=== PATIENT | female | born 1980 | race Caucasian/White ===

== ENCOUNTER 2017-03-31 20:37 | Emergency (ER) | payer OTHER ==
--- NOTE | 2017-03-31 21:20 | ED ORDER SUMMARY ---
..... Patient: KT HARPER I OrderSheet [facility] VisitID: [id number] [address] [place] [address] 37y, F Registration Date/Time: 03/31/2017 ORDER SHEET Weight: 113.3 kg (stated) Allergies: No Known Drug Allergy GENERAL ORDERS: Dress Wounds (Bandaid without bacitracin) (21:20 03/31/2017 Amber VEGA) (21:34 DDavis R.N.) MEDICATION ORDERS: Tdap IM 0.5 mL (NOW, per protocol) (21:20 03/31/2017 Amber VEGA) (21:33 DDeavero R.N.) IV FLUIDS: ORDER SHEET NOTES: [Electronically signed by Jann Jansen R.N. (21:45 03/31/2017)] [Electronically signed by Ray Neely DO (02:45 04/01/2017)] [Electronically locked/signed by Jann Jansen R.N. (21:45 03/31/2017)]
--- NOTE | 2017-03-31 21:20 | ED CLINICAL REPORT ---
Clinical Report - Physicians/Mid Levels [facility] [address] [place] [address] 03/31/2017 20:48 Patient: KT HARPER I Time Seen: 20:55. Arrived- By private vehicle. Historian- patient. HISTORY OF PRESENT ILLNESS Chief Complaint: Injury to the left index finger. The injury happened just prior to arrival. Occurred at work. The patient sustained a laceration. Patient is experiencing moderate pain. Patient denies injury to the head or neck. No other injury. REVIEW OF SYSTEMS The patient sustained a laceration. No swelling, tingling, numbness, weakness or foreign body. All systems otherwise negative, except as recorded above. PAST HISTORY See nurses notes. The patient's dominant hand is the right. Hypothyroidism. Tetanus immunization status is unknown. Surgeries: Cholecystectomy. SOCIAL HISTORY Never smoker. No alcohol use or drug use. ADDITIONAL NOTES The nursing notes have been reviewed. PHYSICAL EXAM Vital Signs: 03/31/2017 20:59 BP: 135/87. HR: 86. RR: 18. O2 saturation: 98%. Temp: 98.2 F. Pain level now: 3/10. Appearance: Alert. Oriented X3. Anxious. Patient in mild distress. Head: Head atraumatic. Eyes: No scleral icterus or pale conjunctivae. ENT: Pharynx normal. No pharyngeal erythema or tonsillar exudate. The mucous membranes are not dry. Neck: Normal inspection. Neck supple. C-spine non-tender. CVS: Normal heart rate and rhythm. Heart sounds normal. Pulses normal. Respiratory: No respiratory distress. Breath sounds normal. Abdomen: No visible injury. Soft. Skin: No cyanosis. Skin warm and dry. (left index finger laceration). Extremities: Tip of left index finger: mild tenderness and 1.0 cm laceration. No erythema, swelling, puncture wound or foreign body. No laceration involving the nail bed, subungual hematoma, nail avulsion, exposed bone or loss of the nail bed on the left index finger. No tip amputation of the left index finger. No wrist injury. Hand and wrist exam otherwise negative. Extremities otherwise negative. Neuro, Vascular and Tendons: Vascular status intact. Sensation intact. Motor intact. Tendon function intact. Neuro: Oriented X 3. PROGRESS AND PROCEDURES Laceration Repair: Location: left index finger. Length: 1.0cm. Complexity: simple (closed with tissue adhesive). Wound depth/shape- subcutaneous. Distal neuro/vascular/tendon status normal. No sensory deficit, motor deficit or vascular deficit distally. Tendon not examined. No tendon deficit. Prepped with Betadine. Wound explored and cleansed with normal saline. Closure of skin. Skin adhesive used. Post-procedure: she is stable and there are no complications. Bleeding is controlled and neuro-vascular status is intact distal to the wound. Dressing applied. Tetanus immunization given. Course of Care: Discussed closure options with pt and she would prefer wound adhesive. I feel this is appropriate as wound is somewhat superficial and not under tension. Patient/family counseled. Disposition: Discharged. Condition: stable and improved. CLINICAL IMPRESSION Single superficial laceration to the left index finger.No foreign body present or left fingernail injury. INSTRUCTIONS Elevate affected areas above chest level. Limit use of your left hand until better. Warnings: INFECTION: Watch for signs of infection (increasing heat and redness, pus-like drainage, swelling, or increased pain). Return or see your doctor if these signs occur. TETANUS: You were given a tetanus shot during your visit. Make a note for future reference. GENERAL WARNINGS: Return or contact your physician immediately if your condition worsens or changes unexpectedly, if not improving as expected, or if other problems arise. Your Current Medications: CONTINUE TAKING THE FOLLOWING MEDICATIONS: Levothyroxine Sodium Oral. OTC Medications: Acetaminophen (available over the counter): take according to label instructions. Motrin (available over the counter): take according to label instructions. Follow-up: Follow up with your doctor in about five days as needed. (Electronically signed by Ray Neely DO 04/01/2017 2:45)
--- NOTE | 2017-03-31 21:20 | ED NURSING NOTES ---
Clinical Report - Nurses [facility] [address] [place] [address] 03/31/2017 20:48 [id number] Triage time 21:00. Acuity: LEVEL 4. Chief Complaint: INJURY TO THE LEFT INDEX FINGER (laceration). Alert. No acute distress. MEDARDO COMA SCORE: Medardo Coma Scale: 15- eyes open spontaneously (4); best verbal response- oriented x 4 (5); best motor response- obeys commands (6). --21:03 Jann Jansen R.N. 20:59 03/31/17. BP: 135/87. HR: 86. RR: 18 (regular and unlabored). O2 saturation: 98% on room air. Temp: 98.2 F (oral). Pain level now: 02/05. --21:03 Jann Jansen R.N. Weight: 113.3 kg stated. Height/Length: 69 inches Per Patient. BMI: 36.9. --21:00 Jann Jansen R.N. Medications Levothyroxine Sodium Oral. --21:00 Jann Jansen R.N. Allergies No Known Drug Allergy. --21:00 Jann Jansen R.N. History Arrived by private vehicle. Historian: patient. Unaccompanied. This occurred just prior to arrival. She sustained a laceration. PAST MEDICAL HX: ( pt denies ). SOCIAL HX: Never smoker. No alcohol use or drug use. ( denies hi/si/abuse at home). ABUSE ASSESSMENT: No report of abuse. SELF HARM ASSESSMENT: A self harm assessment was performed. The patient answered "no" to the question "Do you have thoughts of harming or killing yourself?" and "Are you here because you tried to hurt yourself?". FALL RISK ASSESSMENT: Fall risk assessment completed. No fall risk identified. NUTRITIONAL RISK ASSESSMENT: The nutritional risk assessment revealed no deficiencies. FUNCTIONAL ASSESSMENT: Functional assessment: no impairments noted. LEARNING NEEDS ASSESSMENT: The learning needs assessment revealed no barriers. SKIN INTEGRITY ASSESSMENT: Skin integrity risk assessment completed. No skin integrity risk identified. --21:03 Jann Jnasen R.N. PROBLEMS: Hypothyroidism. --21: Jann Jansen R.N. ADDITIONAL SURGERIES: Cholecystectomy. --21: Jann Jansen R.N. Interventions ID band on patient. To treatment room. --21:03 Jann Jansen R.N. PHYSICAL ASSESSMENT GENERAL / NEURO / PSYCH: Oriented X 4. Alert. Does not appear in pain or distress or anxious. EXTREMITIES: Capillary refill is less than 2 seconds in the extremities. Neuro-vascular status intact to the extremity. SKIN: Skin is warm and dry. Skin not intact. ( left index finger tip, laceration present approx 1 inch in length). --21: Jann Jansen R.N. SKIN: ( bleeding currently controlled). --21: Jann Jansen R.N. NURSING PROGRESS NOTES Reassurance given. Two patient identifiers checked. Call light placed in reach. Side rails up x 1. Bed placed in lowest position. Brakes of bed on. Patient ready for evaluation- chart flagged. Patient waiting for evaluation. --21:03 Jann Jansen R.N. 21:30 03/31/2017 TDAP IM 0.5 mL given. (Lot#: [id number], expiration date: 09/05/2018, Speedboat Driver: Kid Bunch). Given in the left deltoid. Allergies verified and confirmed 5 rights. Vaccine information statement provided to the patient. --21:33 Marco AAmalia pham R.N. DISPOSITION / DISCHARGE Departure time: 21:45. Condition at departure: stable. No learning barriers present. Discharge instructions provided and reviewed with the patient. Treatments reviewed. Reviewed referrals. Patient verbalized understanding. Written instructions provided in Polish. The patient was discharged home, accompanied by spouse and unaccompanied at time of discharge. She left the Emergency Department ambulatory and via private vehicle. Patient driving. --:45 Jann Jansen R.N. 20:59 03/31/17. BP: 135/87. HR: 86. RR: 18 (regular and unlabored). O2 saturation: 98% on room air. Temp: 98.2 F (oral). Pain level now: 02/05. --21:45 Jann Jansen R.N. Locked/Released at 03/31/2017 21:45 by Jann Jansen R.N.
--- NOTE | 2017-03-31 21:20 | ED NURSING NOTES ---
Clinical Report - Nurses [facility] [address] [place] [address] 03/31/2017 20:48 Patient: KT HARPER I [facility]#: [id number] TRIAGE Triage time 21:00. Acuity: LEVEL 4. Chief Complaint: INJURY TO THE LEFT INDEX FINGER (laceration). Alert. No acute distress. MEDARDO COMA SCORE: Medardo Coma Scale: 15- eyes open spontaneously (4); best verbal response- oriented x 4 (5); best motor response- obeys commands (6). --21:03 Jann Jansen R.N. 20:59 03/31/17. BP: 135/87. HR: 86. RR: 18 (regular and unlabored). O2 saturation: 98% on room air. Temp: 98.2 F (oral). Pain level now: 02/05. --21:03 Jann Jansen R.N. Weight: 113.3 kg stated. Height/Length: 69 inches Per Patient. BMI: 36.9. --21:00 Jann Jansen R.N. Medications Levothyroxine Sodium Oral. --21:00 Jann Jansen R.N. Allergies No Known Drug Allergy. --21:00 Jann Jansen R.N. History Arrived by private vehicle. Historian: patient. Unaccompanied. This occurred just prior to arrival. She sustained a laceration. PAST MEDICAL HX: ( pt denies ). SOCIAL HX: Never smoker. No alcohol use or drug use. ( denies hi/si/abuse at home). ABUSE ASSESSMENT: No report of abuse. SELF HARM ASSESSMENT: A self harm assessment was performed. The patient answered "no" to the question "Do you have thoughts of harming or killing yourself?" and "Are you here because you tried to hurt yourself?". FALL RISK ASSESSMENT: Fall risk assessment completed. No fall risk identified. NUTRITIONAL RISK ASSESSMENT: The nutritional risk assessment revealed no deficiencies. FUNCTIONAL ASSESSMENT: Functional assessment: no impairments noted. LEARNING NEEDS ASSESSMENT: The learning needs assessment revealed no barriers. SKIN INTEGRITY ASSESSMENT: Skin integrity risk assessment completed. No skin integrity risk identified. --21:03 Jann Jansen R.N. PROBLEMS: Hypothyroidism. --21: Jann Jansen R.N. ADDITIONAL SURGERIES: Cholecystectomy. --21: Jann Jansen R.N. Interventions ID band on patient. To treatment room. --21:03 Jann Jansen R.N. PHYSICAL ASSESSMENT GENERAL / NEURO / PSYCH: Oriented X 4. Alert. Does not appear in pain or distress or anxious. EXTREMITIES: Capillary refill is less than 2 seconds in the extremities. Neuro-vascular status intact to the extremity. SKIN: Skin is warm and dry. Skin not intact. ( left index finger tip, laceration present approx 1 inch in length). --21: Jann Jansen R.N. SKIN: ( bleeding currently controlled). --21: Jann Jansen R.N. NURSING PROGRESS NOTES Reassurance given. Two patient identifiers checked. Call light placed in reach. Side rails up x 1. Bed placed in lowest position. Brakes of bed on. Patient ready for evaluation- chart flagged. Patient waiting for evaluation. --21:03 Jann Jansen R.N. 21:30 03/31/2017 TDAP IM 0.5 mL given. (Lot#: [id number], expiration date: 09/05/2018, Relief Pharmacist: Effektif). Given in the left deltoid. Allergies verified and confirmed 5 rights. Vaccine information statement provided to the patient. --21:33 Marco AAmalia pham R.N. DISPOSITION / DISCHARGE Departure time: 21:45. Condition at departure: stable. No learning barriers present. Discharge instructions provided and reviewed with the patient. Treatments reviewed. Reviewed referrals. Patient verbalized understanding. Written instructions provided in Chinese. The patient was discharged home, accompanied by spouse and unaccompanied at time of discharge. She left the Emergency Department ambulatory and via private vehicle. Patient driving. --:45 Jann Jansen R.N. 20:59 03/31/17. BP: 135/87. HR: 86. RR: 18 (regular and unlabored). O2 saturation: 98% on room air. Temp: 98.2 F (oral). Pain level now: 02/05. --21:45 Jann Jansen R.N. Locked/Released at 03/31/2017 21:45 by Jann Jansen R.N.
--- NOTE | 2017-03-31 21:20 | ED ORDER SUMMARY ---
..... Patient: KT HARPER I OrderSheet [facility] VisitID: [id number] [address] [place] [address] 37y, F Registration Date/Time: 03/31/2017 ORDER SHEET Weight: 113.3 kg (stated) Allergies: No Known Drug Allergy GENERAL ORDERS: Dress Wounds (Bandaid without bacitracin) (21:20 03/31/2017 Amber VEGA) (21:34 DDavis R.N.) MEDICATION ORDERS: Tdap IM 0.5 mL (NOW, per protocol) (21:20 03/31/2017 Amber VEGA) (21:33 DDeavero R.N.) IV FLUIDS: ORDER SHEET NOTES: [Electronically signed by Jann Jansen R.N. (21:45 03/31/2017)] [Electronically signed by Ray Neely DO (02:45 04/01/2017)] [Electronically locked/signed by Jann Jansen R.N. (21:45 03/31/2017)]
--- NOTE | 2017-04-01 02:46 | ED MED RECONCILIATION SUMMARY ---
Patient: KT HARPER I Medication Reconciliation Report [facility] VisitID: [id number] [address] [place] [address] 37y, F Registration Date/Time: 03/31/2017 Weight: 113.3 kg Height/Length: 69 in. BMI: 36.9 ALLERGIES: No Known Drug Allergy The patient's Home Medications are listed below: CONTINUE TAKING THE FOLLOWING MEDICATIONS: Levothyroxine Sodium Oral The source(s) of the original Home Medication information: Not obtained. The following Medications were given to the patient in the Emergency Department: TDAP [IM] IM 0.5 mL, administered: 03/31/2017 9:30:00 PM The following Medications were prescribed to the patient: Acetaminophen (available over the counter): take according to label instructions. -- Ray Neely DO Motrin (available over the counter): take according to label instructions. -- Ray Neely DO
--- NOTE | 2017-04-01 02:46 | ED MED RECONCILIATION SUMMARY ---
Patient: KT HARPER I Medication Reconciliation Report [facility] VisitID: [id number] [address] [place] [address] 37y, F Registration Date/Time: 03/31/2017 Weight: 113.3 kg Height/Length: 69 in. BMI: 36.9 ALLERGIES: No Known Drug Allergy The patient's Home Medications are listed below: CONTINUE TAKING THE FOLLOWING MEDICATIONS: Levothyroxine Sodium Oral The source(s) of the original Home Medication information: Not obtained. The following Medications were given to the patient in the Emergency Department: TDAP [IM] IM 0.5 mL, administered: 03/31/2017 9:30:00 PM The following Medications were prescribed to the patient: Acetaminophen (available over the counter): take according to label instructions. -- Ray Neely DO Motrin (available over the counter): take according to label instructions. -- Ray Neely DO
--- NOTE | 2017-04-01 02:46 | ED MAR SUMMARY ---
..... Medication Administration Record [facility] [address] [place] [address] Patient: KT HARPER I Visit ID: [id number] 37y, F Weight: 113.3 kg Height/Length: 69 in BMI: 36.9 ALLERGIES: No Known Drug Allergy Given 21:30 03/31/2017 Amalia Strickland RHoney Medication Administered: TDAP [IM], Dose: 0.5 mL IM. Medication Ordered: Tdap IM 0.5 mL (NOW, per protocol).
--- NOTE | 2017-04-01 02:46 | ED DISCHARGE INSTRUCTIONS ---
Patient: KT HARPER I General Instructions [facility] VisitID: [id number] [place] [address] 37y, F Registration Date/Time: 03/31/2017 Single superficial laceration to the left index finger.No foreign body present or left fingernail injury. INSTRUCTIONS Elevate affected areas above chest level. Limit use of your left hand until better. Warnings: INFECTION: Watch for signs of infection (increasing heat and redness, pus-like drainage, swelling, or increased pain). Return or see your doctor if these signs occur. TETANUS: You were given a tetanus shot during your visit. Make a note for future reference. GENERAL WARNINGS: Return or contact your physician immediately if your condition worsens or changes unexpectedly, if not improving as expected, or if other problems arise. Your Current Medications: CONTINUE TAKING THE FOLLOWING MEDICATIONS: Levothyroxine Sodium Oral. OTC Medications: Acetaminophen (available over the counter): take according to label instructions. Motrin (available over the counter): take according to label instructions. Follow-up: Follow up with your doctor in about five days as needed. ADDITIONAL INFORMATION Laceration(Skin Glue) A laceration is a cut through the skin. You have a laceration that has been closed with a type of skin glue. Home Care Medications: Acetaminophen (Tylenol) or ibuprofen (Motrin, Advil) may be taken for pain, unless another pain medicine was prescribed. NOTE: If you have chronic liver or kidney disease or ever had a stomach ulcer or GI bleeding, talk with your doctor before using these medications. General Care: Keep the wound clean and dry. You may shower or bathe as usual, but do not use soaps, lotions, or ointments on the wound area. Do not scrub the wound. After bathing, pat the wound dry with a soft towel. If a bandage was applied and it becomes wet or dirty, replace it. Otherwise, change the bandage every 24 hours. Do not scratch, rub, or pick at the film. Do not place tape directly over the film. Do not apply liquids (such as peroxide), ointments, or creams to the wound while the film is in place. Most skin wounds heal without problems. However, an infection sometimes occurs despite proper treatment. Therefore, watch for the signs of infection listed below. Follow Up as directed by the doctor or our staff. The skin glue film will fall off naturally in 5 to 10 days. Get Prompt Medical Attention if any of the following occur: Signs of infection: Fever of 100.4F (38C) or higher, or as directed by your healthcare provider Increasing pain in the wound Increasing redness or swelling Pus coming from the wound Wound bleeds more than a small amount or bleeding doesnt stop Wound edges come apart You feel numbness or weakness in the wound area that doesnt go away Diphtheria Toxoid Adsorbed, Pertussis Vaccine, Acellular (Adsorbed), Tetanus Toxoid, Adsorbed Suspension for injection What is this medicine? DIPHTHERIA and TETANUS TOXOIDS; PERTUSSIS VACCINE (dif THEER ee uh and TET n us TOK soids; per SYLVESTER hassan SEEN) is used to prevent diphtheria, tetanus, and pertussis infections. How should I use this medicine? This vaccine is for injection into a muscle. It is given by a health residential care facility manager. A copy of Vaccine Information Statements will be given before each vaccination. Read this sheet carefully each time. The sheet may change frequently. Talk to your remote control assembler regarding the use of this vaccine in children. While the DTP vaccine may be given to children ages 6 weeks to 7 years and the Tdap vaccine may be given to children at least 10 years old, precautions do apply. What side effects may I notice from receiving this medicine? Side effects that you should report to your doctor or health residential care facility manager as soon as possible: allergic reactions like skin rash, itching or hives, swelling of the face, lips, or tongue breathing problems fever of 103 degrees F or more flu-like symptoms inconsolable crying infection pain, tingling, numbness in the hands or feet seizures swelling of arm or leg that was injected unusually weak or tired Side effects that usually do not require immediate medical attention (report these side effects to your doctor or health residential care facility manager if they continue or are bothersome): fussy, irritable loss of appetite fever of 102 degrees F or less pain, tenderness, redness, swelling, or a 'knot' at site where injected vomiting What may interact with this medicine? immune globulin medicines that suppress your immune function like adalimumab, anakinra, infliximab medicines to treat cancer medicines that treat or prevent blood clots like warfarin, enoxaparin, and dalteparin steroid medicines like prednisone or cortisone What if I miss a dose? It is important not to miss your dose. Call your doctor or health residential care facility manager if you are unable to keep an appointment. Where should I keep my medicine? This drug is given in a hospital or clinic and will not be stored at home. What should I tell my health care provider before I take this medicine? They need to know if you have any of these conditions: blood disorders like hemophilia fever or infection immune system problems neurologic disease seizures an unusual or allergic reaction to vaccines, thimerosal, latex, other medicines, foods, dyes, or preservatives or trying to get breast-feeding What should I watch for while using this medicine? See your health care provider for all shots of this vaccine as directed. To have protection from infection, you must have 3 shots of this vaccine plus boosters as needed. Tell your doctor right away if you have any serious or unusual side effects after getting this vaccine. You have been given the following additional information: Laceration, Extremity (Skin Glue) Diphtheria Toxoid Adsorbed, Pertussis Vaccine, Acellular (Adsorbed), Tetanus Toxoid, Adsorbed Suspension for injection Limit use of your left hand until better. (Electronically signed by Ray Neely DO 04/01/2017 2:45)
--- NOTE | 2017-04-01 02:46 | ED DISCHARGE INSTRUCTIONS ---
Patient: KT HARPER I General Instructions [facility] VisitID: [id number] [place] [address] 37y, F Registration Date/Time: 03/31/2017 Single superficial laceration to the left index finger.No foreign body present or left fingernail injury. INSTRUCTIONS Elevate affected areas above chest level. Limit use of your left hand until better. Warnings: INFECTION: Watch for signs of infection (increasing heat and redness, pus-like drainage, swelling, or increased pain). Return or see your doctor if these signs occur. TETANUS: You were given a tetanus shot during your visit. Make a note for future reference. GENERAL WARNINGS: Return or contact your physician immediately if your condition worsens or changes unexpectedly, if not improving as expected, or if other problems arise. Your Current Medications: CONTINUE TAKING THE FOLLOWING MEDICATIONS: Levothyroxine Sodium Oral. OTC Medications: Acetaminophen (available over the counter): take according to label instructions. Motrin (available over the counter): take according to label instructions. Follow-up: Follow up with your doctor in about five days as needed. ADDITIONAL INFORMATION Laceration(Skin Glue) A laceration is a cut through the skin. You have a laceration that has been closed with a type of skin glue. Home Care Medications: Acetaminophen (Tylenol) or ibuprofen (Motrin, Advil) may be taken for pain, unless another pain medicine was prescribed. NOTE: If you have chronic liver or kidney disease or ever had a stomach ulcer or GI bleeding, talk with your doctor before using these medications. General Care: Keep the wound clean and dry. You may shower or bathe as usual, but do not use soaps, lotions, or ointments on the wound area. Do not scrub the wound. After bathing, pat the wound dry with a soft towel. If a bandage was applied and it becomes wet or dirty, replace it. Otherwise, change the bandage every 24 hours. Do not scratch, rub, or pick at the film. Do not place tape directly over the film. Do not apply liquids (such as peroxide), ointments, or creams to the wound while the film is in place. Most skin wounds heal without problems. However, an infection sometimes occurs despite proper treatment. Therefore, watch for the signs of infection listed below. Follow Up as directed by the doctor or our staff. The skin glue film will fall off naturally in 5 to 10 days. Get Prompt Medical Attention if any of the following occur: Signs of infection: Fever of 100.4F (38C) or higher, or as directed by your healthcare provider Increasing pain in the wound Increasing redness or swelling Pus coming from the wound Wound bleeds more than a small amount or bleeding doesnt stop Wound edges come apart You feel numbness or weakness in the wound area that doesnt go away Diphtheria Toxoid Adsorbed, Pertussis Vaccine, Acellular (Adsorbed), Tetanus Toxoid, Adsorbed Suspension for injection What is this medicine? DIPHTHERIA and TETANUS TOXOIDS; PERTUSSIS VACCINE (dif THEER ee uh and TET n us TOK soids; per SYLVESTER hassan SEEN) is used to prevent diphtheria, tetanus, and pertussis infections. How should I use this medicine? This vaccine is for injection into a muscle. It is given by a health post acute care registered nurse. A copy of Vaccine Information Statements will be given before each vaccination. Read this sheet carefully each time. The sheet may change frequently. Talk to your resident care assistant regarding the use of this vaccine in children. While the DTP vaccine may be given to children ages 6 weeks to 7 years and the Tdap vaccine may be given to children at least 10 years old, precautions do apply. What side effects may I notice from receiving this medicine? Side effects that you should report to your doctor or health post acute care registered nurse as soon as possible: allergic reactions like skin rash, itching or hives, swelling of the face, lips, or tongue breathing problems fever of 103 degrees F or more flu-like symptoms inconsolable crying infection pain, tingling, numbness in the hands or feet seizures swelling of arm or leg that was injected unusually weak or tired Side effects that usually do not require immediate medical attention (report these side effects to your doctor or health post acute care registered nurse if they continue or are bothersome): fussy, irritable loss of appetite fever of 102 degrees F or less pain, tenderness, redness, swelling, or a 'knot' at site where injected vomiting What may interact with this medicine? immune globulin medicines that suppress your immune function like adalimumab, anakinra, infliximab medicines to treat cancer medicines that treat or prevent blood clots like warfarin, enoxaparin, and dalteparin steroid medicines like prednisone or cortisone What if I miss a dose? It is important not to miss your dose. Call your doctor or health post acute care registered nurse if you are unable to keep an appointment. Where should I keep my medicine? This drug is given in a hospital or clinic and will not be stored at home. What should I tell my health care provider before I take this medicine? They need to know if you have any of these conditions: blood disorders like hemophilia fever or infection immune system problems neurologic disease seizures an unusual or allergic reaction to vaccines, thimerosal, latex, other medicines, foods, dyes, or preservatives or trying to get breast-feeding What should I watch for while using this medicine? See your health care provider for all shots of this vaccine as directed. To have protection from infection, you must have 3 shots of this vaccine plus boosters as needed. Tell your doctor right away if you have any serious or unusual side effects after getting this vaccine. You have been given the following additional information: Laceration, Extremity (Skin Glue) Diphtheria Toxoid Adsorbed, Pertussis Vaccine, Acellular (Adsorbed), Tetanus Toxoid, Adsorbed Suspension for injection Limit use of your left hand until better. (Electronically signed by Ray Neely DO 04/01/2017 2:45)
--- NOTE | 2017-04-01 02:46 | ED MAR SUMMARY ---
..... Medication Administration Record [facility] [address] [place] [address] Patient: KT HARPER I Visit ID: [id number] 37y, F Weight: 113.3 kg Height/Length: 69 in BMI: 36.9 ALLERGIES: No Known Drug Allergy Given 21:30 03/31/2017 Amalia Strickland RHoney Medication Administered: TDAP [IM], Dose: 0.5 mL IM. Medication Ordered: Tdap IM 0.5 mL (NOW, per protocol).
== END 2017-03-31 21:42 | disposition home or self-care (01) ==
LOC: ED SRH 20:37
DX: S61.211A Laceration without foreign body of left index finger without damage to nail, initial encounter (principal); X58.XXXA Exposure to other specified factors, initial encounter; Y93.9 Activity, unspecified; Y92.89 Other specified places as the place of occurrence of the external cause; Y99.0 Civilian activity done for income or pay; E03.9 Hypothyroidism, unspecified; Z79.899 Other long term (current) drug therapy; Z23 Encounter for immunization